=== PATIENT | male | born 1995 | race African-American/Black ===

== ENCOUNTER → 2020-11-28 | Outpatient (CLI) | payer SELFPAY | LOC: M LABSMTC 09:29 | PROVIDERS: ATTEND Pediatrics | DX: Z20.822 Contact with and (suspected) exposure to COVID-19 (principal) ==

== ENCOUNTER 2022-07-22 16:19 | Emergency (ER) | payer OTHER, SELFPAY ==
[~2022-07-22] VITALS: Ht 175.3 cm; Wt 91.7 kg
[2022-07-22 16:20] VITALS: BP 126/78
[2022-07-22] MEDS ORDERED: IBUP-1022 PO (16:51)
[2022-07-22] MEDS ORDERED: KETOROLAC 30 MG/ML 1ML VIAL IM ONE (18:20)
[2022-07-22] MEDS ORDERED: LIDOCAINE 5% (LIDODERM) PATCH TD ONE (18:20)
[2022-07-22] MEDS ORDERED: LIDO5DIS41 TOP (19:05)
[2022-07-22] MEDS ORDERED: CYCL-707 PO (19:05)
== END 2022-07-22 19:38 | disposition home or self-care (01) ==
LOC: M ED 16:19
DX: S30.0XXA Contusion of lower back and pelvis, initial encounter (principal); W00.0XXA Fall on same level due to ice and snow, initial encounter; Z79.1 Long term (current) use of non-steroidal anti-inflammatories (NSAID)
CPT/HCPCS: 72128; 96372; 99282; J1885

== ENCOUNTER 2024-04-15 10:41 | Emergency (ER) | payer OTHER ==
[~2024-04-15] VITALS: Ht 175.3 cm; Wt 88.4 kg
[~2024-04-15 10:41] MED LIST: CYCL-707 PO; IBUP-1022 PO; LIDO5DIS41 TOP
[2024-04-15 12:17] LABS: BASO % 0.8 % (0.0-1.0); EOS % 0.8 % (0.0-3.0); HEMATOCRIT 43.5 % (42.0-52.0); HEMOGLOBIN 15.1 g/dl (13.5-17.5); LYMPH # 1.7 10^3/uL (1.5-5.0); LYMPH % 32.5 % (24.0-44.0); MEAN CORPUSCULAR HEMOGLOBIN 30.1 pg (27.0-33.0); MEAN CORPUSCULAR HGB CONC 34.7 g/dl (32.0-36.5); MEAN CORPUSCULAR VOLUME 86.8 fl (80.0-96.0); MONO # 0.3 10^3/uL (0.0-0.8); MONO % 4.8 % (2.0-8.0); NEUTROPHILS # 3.2 10^3/uL (1.5-8.5); NEUTROPHILS % 60.9 % (36.0-66.0); PLATELET COUNT, AUTOMATED 244 10^3/uL (150-450); RED BLOOD COUNT 5.01 10^6/uL (4.30-6.10); WHITE BLOOD COUNT 5.3 10^3/uL (4.0-10.0)
[2024-04-15 12:40] LABS: LIPASE 28 U/L (12-53)
[2024-04-15 12:42] LABS: ALBUMIN 3.7 G/DL (3.2-5.2); ALKALINE PHOSPHATASE 65 U/L (46-116); ALT/SGPT 18 U/L (7.0-40); AST/SGOT 15 U/L (<34); BILIRUBIN,DIRECT 0.2 MG/DL (<0.4); BILIRUBIN,TOTAL 0.7 MG/DL (0.3-1.2); BLOOD UREA NITROGEN 9 MG/DL (9-23); CALCIUM LEVEL 9.8 MG/DL (8.5-10.1); CARBON DIOXIDE LEVEL 28 MMOL/L (20-31); CHLORIDE LEVEL 107 MMOL/L (98-107); CREATININE FOR GFR 1.02 MG/DL (0.70-1.30); GLOMERULAR FILTRATION RATE > 60.0 (>60); GLUCOSE, FASTING 87 MG/DL (60-100); POTASSIUM SERUM 4.3 MMOL/L (3.5-5.1); SODIUM LEVEL 139 MMOL/L (136-145); TOTAL PROTEIN 7.6 G/DL (5.7-8.2)
[2024-04-15] MEDS ORDERED: CARA1TAB6 PO (12:55)
[2024-04-15] MEDS ORDERED: PROT1TAB2 PO (12:55)
[2024-04-15 13:04] VITALS: BP 105/67; TEMP 97.9; O2SAT 99
== END 2024-04-15 13:05 | disposition home or self-care (01) ==
LOC: M ED 10:41
DX: K29.00 Acute gastritis without bleeding (principal); Z79.1 Long term (current) use of non-steroidal anti-inflammatories (NSAID); Z79.899 Other long term (current) drug therapy